=== PATIENT | male | born 1995 | race Caucasian/White ===

== ENCOUNTER 2016-03-11 11:22 | Emergency (ER) | payer OTHER ==
--- NOTE | 2016-03-11 12:28 | EDDOCDS ---
Physician Documentation [facility] Name: Manoj Carrizales Age: 21 yrs Sex: Male : 1995 Arrival Date: 03/11/2016 Time: 11:22 Bed TR7 Private MD: Jae Morgan [facility] Disposition: 03/11/16 12:17 Discharged to Home/Self Care. Impression: Diseases of tongue - NODULAR MASS. - Condition is Stable. - Medication Reconciliation, Local Pharmacy Hours form. - Follow up: Jae Morgan [facility]; When: Today; Reason: Further diagnostic work-up, Recheck today's complaints, Continuance of care. - Problem is new. - Symptoms are unchanged. - Notes: ALTHOUGH YOU WERE SENT TO THE ER BY YOUR PROVIDER, THE SUGGESTED PROCEDURE (BIOPSY) IS NOT AFUNCTION OF EMERGENCY DEPARTMENT PROVIDERS. YOU WILL NEED A REFERRAL FROM YOUR PCM TO AN ENT SPECIALIST. Historical: - Allergies: no known allergies; - Home Meds: 1. none - PMHx: none; - PSHx: none; - Social history: Smoking status: Patient uses tobacco products, current every day smoker. No barriers to communication noted, The patient speaks fluent [place] Citizen, Speaks appropriately for age. - Family history: Not pertinent. - : The pt / caregiver states he / she is not on anticoagulants. Home medication list is obtained from the patient. - Exposure Risk Screening:: None identified. Vital Signs: 03/11 11:24 BP 157 / 90; Pulse 82; Resp 18; Temp 97.7(T); Pulse Ox 98% on R/A; Weight 102.06 kg / dem1 225 lbs (R); Height 6 ft. 0 in. (182.88 cm); 11:24 Body Mass Index 30.52 (102.06 kg, 182.88 cm) dem1 Signatures: Luis A Baugh PA PA btw Fuller, Desiree,RN RN dsf MTDD
--- NOTE | 2016-03-11 12:28 | EDDOCDS ---
Nurse's Notes [facility] Name: Manoj Carrizales Age: 21 yrs Sex: Male : 1995 Arrival Date: 03/11/2016 Time: 11:22 Bed TR7 Private MD: Jae Morgan [facility] Diagnosis: Diseases of tongue-NODULAR MASS Presentation: 03/11 11:37 Presenting complaint: Patient states: sent over from provider to have tongue biopsied. dsf pt states he was told there was a 1 cm cyst on tongue. Adult Sepsis Screening: The patient does not have new or worsening altered mentation. Patient's respiratory rate is less than 22. Systolic blood pressure is greater than 100. Patient has a qSOFA score of 0- Negative Sepsis Screen. Suicide/Homicide risk assessment- the patient denies having any suicidal and/or homicidal ideations and does not present with any other emotional, behavioral or mental health complaints. Status: The patient is an active duty chief of service. Transition of care: patient was not received from another setting of care. 11:37 Acuity: STARLA Level 4 dsf 11:37 Method Of Arrival: Walkin/Carried/Asstd dsf Triage Assessment: 11:38 General: Appears in no apparent distress, Behavior is appropriate for age, cooperative. dsf Pain: Location: tongue Pain currently is 3 out of 10 on a pain scale. Quality of pain is described as annoying. HIV screening NA for this visit active duty . Respiratory: Airway is patent Respiratory effort is even, unlabored, Respiratory pattern is regular, symmetrical. Historical: - Allergies: no known allergies; - Home Meds: 1. none - PMHx: none; - PSHx: none; - Social history: Smoking status: Patient uses tobacco products, current every day smoker. No barriers to communication noted, The patient speaks fluent German, Speaks appropriately for age. - Family history: Not pertinent. - : The pt / caregiver states he / she is not on anticoagulants. Home medication list is obtained from the patient. - Exposure Risk Screening:: None identified. Screenin:26 Screening information is obtained from the patient. Fall risk: No risks identified. dsf Assistance ADL's: requires no assistance with activities of daily living. Abuse/DV Screen: The patient / caregiver reports he/she is: not in a situation that causes fear, pain or injury. Nutritional screening: No deficits noted. Advance Directives: Currently, there is no health care proxy. home support is adequate. Assessment: 12:26 Adult Sepsis Screening: The patient does not have new or worsening altered mentation. dsf Patient's respiratory rate is less than 22. Systolic blood pressure is greater than 100. Patient has a qSOFA score of 0- Negative Sepsis Screen. General: Appears in no apparent distress, Behavior is appropriate for age, cooperative. Neurological: Level of Consciousness is awake, alert. Cardiovascular: No deficits noted. Respiratory: Airway is patent Respiratory effort is even, unlabored, Respiratory pattern is regular, symmetrical. Derm: Skin is pink, warm & dry. Vital Signs: 11:24 BP 157 / 90; Pulse 82; Resp 18; Temp 97.7(T); Pulse Ox 98% on R/A; Weight 102.06 kg dem1 (R); Height 6 ft. 0 in. (182.88 cm); 11:24 Body Mass Index 30.52 (102.06 kg, 182.88 cm) [facility] Vitals: 11:24 Log In Time: March 11, 2016 at 11:20. [facility] ED Course: 11:23 Patient visited by Abraham Peralta. dem1 11:23 [facility] is Private Physician. dem1 11:23 Patient moved to Waiting dem1 11:24 Patient moved to Pre RCE dem1 11:37 Triage Initiated dsf 11:38 Patient moved to Triage 3 dsf 11:41 [facility] btw 11:41 Angelic Perry MD is Attending Physician. btw 11:41 Patient visited by Luis A Baugh PA. btw 12:17 [facility] is Referral Physician. btw 12:26 Patient moved to TR7 dsf 12:26 The patient / caregiver is instructed regarding the plan of care and ED course. dsf 12:26 No IV's were initiated during this patient's visit. No procedures done that require dsf assistance. Order Results: There are currently no results for this order. Outcome: 12:17 Discharge ordered by Provider. btw 12:26 Discharge Assessment: Patient awake, alert and oriented x 3. No cognitive and/or dsf functional deficits noted. Patient verbalized understanding of disposition instructions. patient administered narcotics - no. The following High Risk Discharge criteria are identified: None. Discharged to home ambulatory. Condition: stable. Discharge instructions given to patient, Instructed on discharge instructions, follow up and referral plans. Demonstrated understanding of instructions, Pt was receptive of discharge instructions/ teaching. No special radiology studies were completed. Property sent home with patient. 12:27 Patient left the ED. dsf Signatures: Luis A Baugh PA PA btw Fuller, Desiree, RN RN dsf Abraham Peralta MTDD
--- NOTE | 2016-03-13 13:28 | EDDOCDS ---
Nurse's Notes [facility] Name: Manoj Carrizales Age: 21 yrs Sex: Male : 1995 Arrival Date: 03/11/2016 Time: 11:22 Bed TR7 Private MD: Jae Morgan [facility] Diagnosis: Diseases of tongue-NODULAR MASS Presentation: 03/11 11:37 Presenting complaint: Patient states: sent over from provider to have tongue biopsied. dsf pt states he was told there was a 1 cm cyst on tongue. Adult Sepsis Screening: The patient does not have new or worsening altered mentation. Patient's respiratory rate is less than 22. Systolic blood pressure is greater than 100. Patient has a qSOFA score of 0- Negative Sepsis Screen. Suicide/Homicide risk assessment- the patient denies having any suicidal and/or homicidal ideations and does not present with any other emotional, behavioral or mental health complaints. 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 Transition of care: patient was not received from another setting of care. 11:37 Acuity: STARLA Level 4 dsf 11:37 Method Of Arrival: Walkin/Carried/Asstd dsf Triage Assessment: 11:38 General: Appears in no apparent distress, Behavior is appropriate for age, cooperative. dsf Pain: Location: tongue Pain currently is 3 out of 10 on a pain scale. Quality of pain is described as annoying. HIV screening NA for this visit active duty . Respiratory: Airway is patent Respiratory effort is even, unlabored, Respiratory pattern is regular, symmetrical. Historical: - Allergies: no known allergies; - Home Meds: 1. none - PMHx: none; - PSHx: none; - Social history: Smoking status: Patient uses tobacco products, current every day smoker. No barriers to communication noted, The patient speaks fluent Georgian, Speaks appropriately for age. - Family history: Not pertinent. - : The pt / caregiver states he / she is not on anticoagulants. Home medication list is obtained from the patient. - Exposure Risk Screening:: None identified. Screenin:26 Screening information is obtained from the patient. Fall risk: No risks identified. dsf Assistance ADL's: requires no assistance with activities of daily living. Abuse/DV Screen: The patient / caregiver reports he/she is: not in a situation that causes fear, pain or injury. Nutritional screening: No deficits noted. Advance Directives: Currently, there is no health care proxy. home support is adequate. Assessment: 12:26 Adult Sepsis Screening: The patient does not have new or worsening altered mentation. dsf Patient's respiratory rate is less than 22. Systolic blood pressure is greater than 100. Patient has a qSOFA score of 0- Negative Sepsis Screen. General: Appears in no apparent distress, Behavior is appropriate for age, cooperative. Neurological: Level of Consciousness is awake, alert. Cardiovascular: No deficits noted. Respiratory: Airway is patent Respiratory effort is even, unlabored, Respiratory pattern is regular, symmetrical. Derm: Skin is pink, warm & dry. Vital Signs: 11:24 BP 157 / 90; Pulse 82; Resp 18; Temp 97.7(T); Pulse Ox 98% on R/A; Weight 102.06 kg [facility] (R); Height 6 ft. 0 in. (182.88 cm); 11:24 Body Mass Index 30.52 (102.06 kg, 182.88 cm) [facility] Vitals: 11:24 Log In Time: March 11, 2016 at 11:20. [facility] ED Course: 11:23 Patient visited by Abraham Peralta. dem1 11:23 [facility] is Private Physician. dem1 11:23 Patient moved to Waiting dem1 11:24 Patient moved to Pre RCE dem1 11:37 Triage Initiated dsf 11:38 Patient moved to Triage 3 dsf 11:41 [facility] btw 11:41 Angelic Perry MD is Attending Physician. btw 11:41 Patient visited by Luis A Baugh PA. btw 12:17 [facility] is Referral Physician. btw 12:26 Patient moved to TR7 dsf 12:26 The patient / caregiver is instructed regarding the plan of care and ED course. dsf 12:26 No IV's were initiated during this patient's visit. No procedures done that require dsf assistance. 15:53 Patient name changed from Manoj\S\M\S\Perkins\S\ to Manoj\S\Padilla\S\All. EDMS 03/12 07:50 T-Sheet-- Draft Copy was scanned into [employer] and attached to record. gb Order Results: There are currently no results for this order. Outcome: 03/11 12:17 Discharge ordered by Provider. btw 12:26 Discharge Assessment: Patient awake, alert and oriented x 3. No cognitive and/or dsf functional deficits noted. Patient verbalized understanding of disposition instructions. patient administered narcotics - no. The following High Risk Discharge criteria are identified: None. Discharged to home ambulatory. Condition: stable. Discharge instructions given to patient, Instructed on discharge instructions, follow up and referral plans. Demonstrated understanding of instructions, Pt was receptive of discharge instructions/ teaching. No special radiology studies were completed. Property sent home with patient. 12:27 Patient left the ED. dsf Signatures: Dispatcher [employer] EDMS Clara Nguyen, Luis A Rust PA PA btw Fuller, Desiree,RN RN dsf Abraham Peralta Chart Complete EBONI
--- NOTE | 2016-03-13 13:28 | EDDOCDS ---
Physician Documentation [facility] Name: Manoj Carrizales Age: 21 yrs Sex: Male : 1995 Arrival Date: 03/11/2016 Time: 11:22 Bed TR7 Private MD: Jae Morgan [facility] Disposition: 03/11/16 12:17 Discharged to Home/Self Care. Impression: Diseases of tongue - NODULAR MASS. - Condition is Stable. - Medication Reconciliation, Local Pharmacy Hours form. - Follow up: Jae Morgan [facility]; When: Today; Reason: Further diagnostic work-up, Recheck today's complaints, Continuance of care. - Problem is new. - Symptoms are unchanged. - Notes: ALTHOUGH YOU WERE SENT TO THE ER BY YOUR PROVIDER, THE SUGGESTED PROCEDURE (BIOPSY) IS NOT AFUNCTION OF EMERGENCY DEPARTMENT PROVIDERS. YOU WILL NEED A REFERRAL FROM YOUR PCM TO AN ENT SPECIALIST. Historical: - Allergies: no known allergies; - Home Meds: 1. none - PMHx: none; - PSHx: none; - Social history: Smoking status: Patient uses tobacco products, current every day smoker. No barriers to communication noted, The patient speaks fluent Turkmen, Speaks appropriately for age. - Family history: Not pertinent. - : The pt / caregiver states he / she is not on anticoagulants. Home medication list is obtained from the patient. - Exposure Risk Screening:: None identified. Vital Signs: 03/11 11:24 BP 157 / 90; Pulse 82; Resp 18; Temp 97.7(T); Pulse Ox 98% on R/A; Weight 102.06 kg / dem1 225 lbs (R); Height 6 ft. 0 in. (182.88 cm); 11:24 Body Mass Index 30.52 (102.06 kg, 182.88 cm) dem1 MDM: 12:37 Financial registration complete. mm15 03/12 07:50 T-Sheet-- Draft Copy was scanned into [employer] and attached to record. gb Signatures: Clara Nguyen, Luis A Rust PA PA btw Fuller, Desiree, RN RN Marcia Mendoza mm15 The chart was reviewed and I authenticate all verbal orders and agree with the evaluation and treatment provided.Attachments: 07:50 T-Sheet-- Draft Copy gb Chart Complete MTDD
--- NOTE | 2016-03-13 13:28 | EDDOCDS ---
Physician Documentation [facility] Name: Manoj Carrizales Age: 21 yrs Sex: Male : 1995 Arrival Date: 03/11/2016 Time: 11:22 Bed TR7 Private MD: Jae Morgan [facility] Disposition: 03/11/16 12:17 Discharged to Home/Self Care. Impression: Diseases of tongue - NODULAR MASS. - Condition is Stable. - Medication Reconciliation, Local Pharmacy Hours form. - Follow up: Jae Morgan [facility]; When: Today; Reason: Further diagnostic work-up, Recheck today's complaints, Continuance of care. - Problem is new. - Symptoms are unchanged. - Notes: ALTHOUGH YOU WERE SENT TO THE ER BY YOUR PROVIDER, THE SUGGESTED PROCEDURE (BIOPSY) IS NOT AFUNCTION OF EMERGENCY DEPARTMENT PROVIDERS. YOU WILL NEED A REFERRAL FROM YOUR PCM TO AN ENT SPECIALIST. Historical: - Allergies: no known allergies; - Home Meds: 1. none - PMHx: none; - PSHx: none; - Social history: Smoking status: Patient uses tobacco products, current every day smoker. No barriers to communication noted, The patient speaks fluent [place], Speaks appropriately for age. - Family history: Not pertinent. - : The pt / caregiver states he / she is not on anticoagulants. Home medication list is obtained from the patient. - Exposure Risk Screening:: None identified. Vital Signs: 03/11 11:24 BP 157 / 90; Pulse 82; Resp 18; Temp 97.7(T); Pulse Ox 98% on R/A; Weight 102.06 kg / dem1 225 lbs (R); Height 6 ft. 0 in. (182.88 cm); 11:24 Body Mass Index 30.52 (102.06 kg, 182.88 cm) dem1 MDM: 12:37 Financial registration complete. mm15 03/12 07:50 T-Sheet-- Draft Copy was scanned into [employer] and attached to record. gb Signatures: Clara Nguyen, Luis A Rust PA PA btw Fuller, Desiree, RN RN Marcia Mendoza mm15 The chart was reviewed and I authenticate all verbal orders and agree with the evaluation and treatment provided.Attachments: 07:50 T-Sheet-- Draft Copy gb Chart Complete MTDD
== END 2016-03-11 12:27 | disposition home or self-care (01) ==
LOC: M ED 11:22
DX: K14.9 Disease of tongue, unspecified (principal); Z72.0 Tobacco use